=== PATIENT | female | born 1985 | race Two or more races ===

== ENCOUNTER 2017-03-21 13:13 | Emergency (ER) | payer OTHER ==
--- NOTE | 2017-03-21 14:19 | ED Physician Documentation ---
PD HPI CHEST PAIN - Stated complaint Stated Complaint: CP - Chief complaint Chief Complaint: Cardiac - History obtained from History obtained from: Patient - History of Present Illness Timing - onset: How many hours ago (1) Timing - onset during: Rest Timing - duration: Minutes (20) Timing - details: Abrupt onset Pain level max: 10 Pain level now: 0 Quality: Pressure, Tightness Location: Substernal Radiation: Other (non-radiating) Improved by: Other (breathing, slowing down her breathing) Worsened by: Other (nothing) Associated symptoms: No: Shortness of air, Diaphoresis, Nausea, Vomiting, General Weakness, Palpitations, Cough Similar symptoms before: Has not had sx before Recently seen: Not recently seen - Additional information Additional information: Patient is a 31-year-old female who presents to the emergency department with squeezing substernal chest pain today while at work. This resolved when EMS arrived and talked her through breathing techniques to slow down her breathing. They found her to be tachypneic. Appeared to be having an anxiety attack. Patient denies any recent travel, tobacco use, control use, early cardiac disease in the family, clotting disorders in the family. Currently asymptomatic. No recent surgeries or immobilization Review of Systems Constitutional: denies: Fever, Chills Nose: denies: Rhinorrhea / runny nose, Congestion Throat: denies: Sore throat Cardiac: denies: Chest pain / pressure, Palpitations Respiratory: denies: Cough GI: denies: Abdominal Pain, Nausea, Vomiting, Diarrhea Skin: denies: Rash Musculoskeletal: denies: Neck pain, Back pain Neurologic: denies: Focal weakness, Numbness, Headache PD PAST MEDICAL HISTORY - Past Medical History Past Medical History: No - Present Medications Home Medications: Ambulatory Orders Medication Instructions Recorded Confirmed No Known Home Medications [No 03/21/17 03/21/17 Known Home Medications] - Allergies Allergies/Adverse Reactions: Allergies Allergy/AdvReac Type Severity Reaction Status Date / Time No Known Drug Allergies Allergy Verified 03/21/17 13:31 - Social History Does the pt smoke?: No Smoking Status: Never smoker - Immunizations Immunizations are current?: Yes PD ED PE NORMAL - Vitals Vital signs reviewed: Yes - General General: Alert and oriented X 3, No acute distress, Well developed/nourished - HEENT HEENT: PERRL, Moist mucous membranes - Neck Neck: Supple, no meningeal sign - Cardiac Cardiac: RRR, Strong equal pulses - Respiratory Respiratory: No respiratory distress, Clear bilaterally - Abdomen Abdomen: Soft, Non tender, Non distended - Back Back: No CVA TTP - Derm Derm: Warm and dry - Extremities Extremities: Normal ROM s pain, No edema, No calf tenderness / cord - Neuro Neuro: Alert and oriented X 3, digital proofing and platemaker 2-12 intact, No motor deficit, No sensory deficit, Normal speech - Psych Psych: Normal mood, Normal affect Results - Vitals Vitals: Vital Signs - 24 hr 03/21/17 03/21/17 13:20 14:28 Temperature 36.9 C 37.2 C Heart Rate 75 79 Respiratory 20 18 Rate Blood Pressure 107/72 118/78 O2 Saturation 98 96 Oxygen O2 Source Room air - EKG (time done) 1324 Rate: Rate (enter#) (71) Rhythm: NSR Sharon: Normal Intervals: Normal [place] QRS: Normal Ischemia: Normal ST segments PD MEDICAL DECISION MAKING - ED course Complexity details: reviewed results, re-evaluated patient, considered differential (No ST elevation HI, no aortic dissection, no PE, no tension pneumothorax, no aortic aneurysm), d/w patient ED course: Patient is a 31-year-old female who presents to the emergency department with chest pain during a rapid breathing episode today. Appears to be consistent with anxiety. Her symptoms resolved when she was able to be verbally calm down. 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 She has no symptoms in the emergency department. No evidence of acute coronary syndrome, pulmonary embolus. No evidence of pneumothorax. Patient counseled regarding signs and symptoms for which I believe and urgent re-evaluation would be necessary. Patient with good understanding of and agreement to plan and is comfortable going home at this time This document was made in part using voice recognition software. While efforts are made to proofread this document, sound alike and grammatical errors may occur. Departure - Departure Disposition: 01 Home, Self Care Clinical Impression: Atypical chest pain Condition: Good Instructions: ED Chest Pain Atypical Unkn Cause Follow-Up: your,doctor in 3 days [Other] Comments: Return if you worsen. This does not appear to be related to her heart today. Discharge Date/Time: 03/21/17 14:28
[2017-03-21 14:29] VITALS: BP 118/78
== END 2017-03-21 14:28 | disposition home or self-care (01) ==
LOC: ED 13:13
DX: R07.89 Other chest pain (principal)
CPT/HCPCS: 93005; 99283

== ENCOUNTER 2017-04-09 01:33 | Outpatient (CLI) | payer OTHER | END 2017-04-09 01:34 | disposition EMS.NT | LOC: EMS 01:33 | PROVIDERS: ATTEND Surgery | DX: F41.9 Anxiety disorder, unspecified (principal) ==